=== PATIENT | female | born 1950 | race Caucasian/White ===

== ENCOUNTER → 2018-09-01 | Outpatient (CLI) | payer MEDICARE ==
--- NOTE | 2018-09-02 09:05 | PCVCIMAG ---
APPROVED REPORT Study performed: 09/01/2018 16:17:00 EXAM: Limited 2D and color flow Echocardiogram Patient Location: Echo lab Room #: 2Status: routine BSA: 1.72 HR: 96 bpmBP: 132/80 mmHg Rhythm: NSR Other Information Study Quality: Good Indications Abnormal ECG Left Ventricle Left ventricle is grossly normal size. Severe hypokinesis of the apex, distal septal and anterior nair is seen Left ventricular systolic function is mildly decreased. LVEF is 40-45%. Aortic Valve The aortic valve is normal in structure. No aortic regurgitation is present. There is no aortic valvular stenosis. Mitral Valve The mitral valve is normal in structure. Tricuspid Valve Tricuspid valve is grossly normal in structure and function. Pericardium No pericardial effusion. There is no pleural effusion. <Conclusion> Left ventricle is grossly normal size. Left ventricular systolic function is mildly decreased. Severe hypokinesis of the apex, distal septal and anterior nair is seen The aortic valve is normal in structure. No aortic regurgitation is present. The mitral valve is normal in structure. No pericardial effusion. There is no pleural effusion. Tricuspid valve is grossly normal in structure and function.
== END | disposition home or self-care (01) ==
LOC: PCVCIMAG 12:00
DX: R94.31 Abnormal electrocardiogram [ECG] [EKG] (principal)
CPT/HCPCS: 93308